=== PATIENT | male | born 1950 | race African-American/Black ===

== ENCOUNTER 2019-11-18 15:21 | Inpatient (IN) ==
[2019-11-18 15:54] VITALS: BMI 27.8
--- NOTE | 2019-11-18 16:12 | DR.EXTPAIN ---
HPI - Time seen Time seen: 16:08 - PCP Primary Care Physician: helena - Complaint/Symptoms Chief Complaint Doctor Comments: Patient states he has had a cold and cough for several weeks but has been nauseated, dizzy, aching for the past week getting progressively worst with fever. States he is a patient of Dr. Avendano and is taking his blood pressure medicines. 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 He denies tobacco or acohol uusage. He has not been feeling good for a week. He denies chest pain, dysuria or hematuria. Chief Complaint:: patient stated he has been sick,weak,dizzy and no energy for 2 weeks and has neen coughing and vomiting for 2 weeks. stated he has been running a fever for a week. - Nurses notes reviewed Nurses Notes Review: Yes - Source History Provided: Patient - Mode of arrival Mode of Arrival: Ambulatory - Timing Onset of Chief Complaint: 11/06/19 - Context History of: None - Associated signs and symptoms Associated Signs and Symptoms: None, Weakness, Fever, Cough, Nausea, Shortness of Breath, Vomiting PMH - PMH Past Medical History: Yes Past Medical History: Diabetes Past Surgical History: Yes Surgical History: Joint Replacement - Family History History of Family Medical Conditions: No Family Medical History: Cancer, [place] - Social History Does patient currently use any type of tobacco product: No Have you used tobacco products in the last 12 months: No Type of Tobacco Use: None Does any household member use tobacco: No Alcohol Use: Rarely Do you use any recreational Drugs:: No Lives With: Family Lives Where: Home - Travel Risk Coronavirus risk:travel/contact w/high risk person: No Has patient experienced Coronavirus symptoms: Yes Coronavirus symptoms experienced: Fever, Coughing - infectious screening In the last 2 months have you had wt loss of >10#?: NO Have you had fever, night sweats or hemotysis?: No Have you traveled outside the country in the last 6 months?: No Isolation: Droplet ROS - Review of Systems Constitutional: No Symptoms Reported, Chills, Fever, Weakness, Loss of Appetite Eyes: No Symptoms Reported ENTM: No Symptoms Reported Respiratoy: No Symptoms Reported, Non-Productive Cough, Short of Breath Cardiovascular: No Symptoms Reported. negative: See HPI, Chest Pain, Edema, Palpitations, Syncope, Cyanosis, Skin Mottling, Other Gastrointestinal/Abdominal: No Symptoms Reported, Nausea, Vomiting. negative: See HPI, Abdominal Pain, Constipation, Diarrhea, Food Intolerance, Other Genitourinary: No Symptoms Reported Neurological: No Symptoms Reported Musculoskeletal: No Symptoms Reported Integumentary: No Symptoms Reported Hematologic/Lymphatic: No Symptoms Reported. negative: See HPI, Anemia, Blood Clots, Easy Bleeding, Easy Bruising, Swollen Glands, Lymphadenopathy, Other Endocrine: No Symptoms Reported Psychiatric: No Symptoms Reported. negative: See HPI, Anxiety, Depression, Hallucinations, Excessive crying, Suicidal, Other PE - General Limitations: No Limitations General Appearance: Alert, In Distress (moderate) - Head Head Exam: Normal Inspection, Atraumatic, Normocephalic - Eyes Eye exam: Normal Appearance, PERRL, EOMI. negative: Scleral Icterus, Conjunctival Injection, Nystagmus, Miosis, Mydrasis, Periorbital Swelling, Periorbital Tenderness, Other - ENT ENT Exam: Normal Exam, Normal Oropharynx, Normal External Ear Exam, Mucous Membranes Moist, TM's Normal Bilaterally - Neck Neck Exam: Normal Inspection, Full ROM, Trachea Midline. negative: Tenderness, Meningismus, Lymphadenopathy, Thyromegaly, Other - Chest Chest Inspection: Normal Inspection, Symmetric Chest Wall Rise. negative: Tenderness, Rash, Abscess, Other - Respiratory Respiratory Exam: Normal Lung Sounds Bilat Respiratory Exam: Bilateral Decreased Breath Sounds, Right Rales, Lower Rales - Cardiovascular Cardiovascular Exam: Regular Rate, Normal Rhythm, Normal Heart Sounds, Systolic Murmur - Abdominal Exam Abdominal Exam: Normal Inspection, Normal Bowel Sounds, Soft. negative: Distention, Tenderness, Guarding, Rebound, Rigidity, Dimnished Bowel Sounds, Hyperactive Bowel Sounds, Hypoactive Bowel Sounds, Organomegaly, Trauma, Incision, Ascites, Mass, Bruit, Pulsatile Mass, Hernia, Other Abdominal Tenderness: negative: RUQ, RLQ, LUQ, LLQ, Epigastrium, Suprapubic, Diffuse, Mild, Moderate, Severe, Other - Extremities Extremities Exam: Normal Inspection, Full ROM, Normal Capillary Refill. negative: Tenderness, Edema, Joint Swelling, Calf Tenderness, Other - Upper Extremities Shoulder Exam: Normal Inspection, Full ROM. negative: Tenderness, Swelling, Abrasion, Laceration, Ecchymosis, Deformity, Crepitus, Dislocation, Erythema, Tenderness over AC Joint, Other Arm Exam: Normal Inspection, Full ROM. negative: Tenderness, Swelling, Abrasion, Laceration, Ecchymosis, Deformity, Crepitus, Erythema, Other Elbow Exam: Normal Inspection, Full ROM. negative: Tenderness, Swelling, Abrasion, Laceration, Ecchymosis, Deformity, Crepitus, Dislocation, Erythema, Effusion, Pain w/ pronation, Pain w/ Spuination, Tenderness over Radial Head, Other Forearm Exam: Normal Inspection, Full ROM. negative: Tenderness, Swelling, Abrasion, Laceration, Ecchymosis, Deformity, Crepitus, Erythema, Dislocation, Other Hand Exam: Normal Inspection, Full ROM. negative: Tenderness, Swelling, Abrasion, Laceration, Ecchymosis, Skin Avulsion, Deformity, Crepitus, Erythema, Dislocation, Amputation, Nail Avulsion, Subungual Hematoma, Other Neuromotor Exam: Normal Exam Neurosensory Exam: Normal Exam Upper Ext. Vascular Exam: Capillary Refill (normal), Radial Pulse (normal) - Lower Extremities Hip/Pelvis Exam: Normal Inspection, Full ROM Upper Leg Exam: Normal Inspection, Full ROM Knee Exam: Normal Inspection, Full ROM. negative: Tenderness, Swelling, Abrasion, Laceration, Ecchymosis, Deformity, Crepitus, Dislocation, Erythema, Effusion, Anterior Drawer Sign, Posterior Draw Sign, Pain with Valgus, Laxity with Valgus, Pain with Varus, Knee Extension Intact, Other Lower Leg Exam: Normal Inspection, Full ROM. negative: Tenderness, Swelling, Abrasion, Laceration, Deformity, Ecchymosis, Crepitus, Dislocation, Erythema, Pa lpable Cord, Homans' Sign, Achilles Tendon Intact, Other Ankle Exam: Normal Inspection, Full ROM. negative: Tenderness, Swelling, Abrasion, Laceration, Ecchymosis, Deformity, Crepitus, Dislocation, Erythema, Tenderness over talofibular lig, Anterior Draw Sign, Other Foot/Toe Exam: Normal Inspection, Full ROM. negative: Tenderness, Swelling, Abrasion, Laceration, Ecchymosis, Deformity, Crepitus, Dislocation, Erythema, Amputation, Puncture Wound, Foreign Body, Calcaneal Tenderness, Nail Avulsion, Other Neurovascular/Tendon Exam: Normal Capillary Refill, Normal 2-point discrimination, Normal Fine/Light Touch Gait Exam: Observed and Normal - Back Back Exam: Normal Inspection, Full ROM. negative: Tenderness, (R) CVA Tenderness, (L) CVA Tenderness, Muscle Spasm, Paraspinal Tenderness, Vertebral Tenderness, Rashes, (R) Sciatic Notch Tenderness, (L) Sciatic Notch Tendern, (R) Straight Leg Raise, (L) Straight Leg Raise, Other - Neurological Neurological Exam: Alert, Oriented X3, CN II-XII Intact, Normal Gait, Reflexes Normal - Psychiatric Psychiatric Exam: Normal Affect, Normal Mood. negative: Depressed, Agitated, Anxious, Flat Affect, Manic, Homicidal Ideation, Suicidal Ideation, Other - Skin Skin Exam: Warm, Dry, Intact, Normal Color. negative: Rash, Cyanosis, Diaphoresis, Erythema, Pallor, Mottled, Other Type of Lesion: negative: Rash, Abscess, Laceration, Foreign Body, Bite/Sting, Abrasion, Other Distribution: negative: Generalized, Involves Palms/Soles, Head, Face, Neck, Thorax, Chest, Back, Abdomen, Genitals, LUE, LLE, RUE, RLE, Other Description: negative: Size, Tenderness, Erythematous, Swelling, Macular, Papular, Vesicular, Blisters, Cofluent, Bullous, Petechial, Purpuric, Urticarial, Crusting, Discharge, Fluctuant, Indurated, Other - Vital Signs Vitals: Temperature 101.7 F Pulse Rate 99 Respiratory Rate 33 Blood Pressure 125/76 O2 Sat by Pulse Oximetry 96 Course - Reevaluation 1st: Improved - Consultation Called: 20:01 Call Returned: 20:01 (Dr. Avendano to admit) - Education/Counseling Education/Counseling: Patient, Family Educated On: Treatment, Diagnosis, Needs for Follow Up ROR - Labs Reviewed Laboratory Results Reviewed?: Yes (All labs and x-ray results reviewed and discussed with patient) Result Diagrams: 11/18/19 16:39 11/18/19 16:39 - XRAY XRAY Interpreted by: Radiologist (CXR: No acute or significant chest findings) - EKG Rate: 91 [place]: Normal Rhythm: NSR Block: None Hypertrophy: None ST: Normal - Labs Reviewed Laboratory: WBC 7.8 X10^3/uL (3.6-10.0) 11/18/19 16:39 RBC 5.46 X10^6/uL (4.7-6.0) 11/18/19 16:39 Hgb 15.3 g/dL (13.5-18.0) 11/18/19 16:39 Hct 46.0 % (42.0-54.0) 11/18/19 16:39 MCV 84.2 fL (80.0-100.0) 11/18/19 16:39 MCH 28.0 pg (27.0-34.0) 11/18/19 16:39 MCHC 33.3 g/dL (33.0-35.0) 11/18/19 16:39 RDW 13.4 % (11.6-16.5) 11/18/19 16:39 Plt Count 205 X10^3/uL (150.0-450.0) 11/18/19 16:39 MPV 8.5 fL (7.4-11.0) 11/18/19 16:39 Neut % (Auto) 81.2 % (42.0-75.0) H 11/18/19 16:39 Lymph % (Auto) 10.2 % (21.0-51.0) L 11/18/19 16:39 [place] % (Auto) 8.2 % (0.0-13.0) 11/18/19 16:39 Eos % (Auto) 0.0 % (0.9-2.9) L 11/18/19 16:39 Baso % (Auto) 0.4 % (0.2-1.0) 11/18/19 16:39 Neut # (Auto) 6.3 x10^3/uL (2.2-4.8) H 11/18/19 16:39 Lymph # (Auto) 0.8 X10^3/uL (1.3-2.9) L 11/18/19 16:39 [place] # (Auto) 0.6 x10^3/uL (0.3-0.8) 11/18/19 16:39 Eos # (Auto) 0.0 x10^3/uL (0.0-0.2) 11/18/19 16:39 Baso # (Auto) 0.0 X10^3/uL (0.0-0.1) 11/18/19 16:39 Absolute Nucleated RBC 0.0 /100WBC 11/18/19 16:39 PT 13.5 SECONDS (11.8-14.3) 11/18/19 16:39 INR Target Range - 11/18/19 16:39 INR 1.06 (0.8-1.3) 11/18/19 16:39 APTT 43.6 SECONDS (22.9-36.5) H 11/18/19 16:39 PTT Comment - 11/18/19 16:39 Sodium 140 mmol/L (136-145) 11/18/19 16:39 Corrected Sodium 141 mmol/L (136-145) 11/18/19 16:39 Potassium 4.2 mmol/L (3.5-5.1) 11/18/19 16:39 Chloride 101 mmol/L (98-107) 11/18/19 16:39 Carbon Dioxide 32.5 mmol/L (21-32) H 11/18/19 16:39 BUN 23 mg/dL (7-18) H 11/18/19 16:39 Creatinine 1.72 mg/dL (0.70-1.30) H 11/18/19 16:39 Est GFR (MDRD) Af Amer 51 (>60) L 11/18/19 16:39 Est GFR (MDRD) Non-Af 42 (>60) L 11/18/19 16:39 Glucose 132 mg/dL (65-99) H 11/18/19 16:39 Lactic Acid 1.2 mmol/L (0.4-2.0) 11/18/19 16:39 Calcium 9.0 mg/dL (8.5-10.1) 11/18/19 16:39 Corrected Calcium 9.6 mg/dL (8.5-10.1) 11/18/19 16:39 Magnesium 1.8 mg/dL (1.7-2.9) 11/18/19 16:39 Total Bilirubin 1.00 mg/dL (0.2-1.0) 11/18/19 16:39 AST 27 Units/L (15-37) 11/18/19 16:39 ALT 22 Units/L (12-78) 11/18/19 16:39 Alkaline Phosphatase 87 Units/L (46-116) 11/18/19 16:39 Total Protein 8.5 g/dL (6.4-8.2) H 11/18/19 16:39 Albumin 3.3 g/dL (3.4-5.0) L 11/18/19 16:39 Globulin 5.2 g/dL (2.5-4.5) H 11/18/19 16:39 Albumin/Globulin Ratio 0.6 Ratio (1.1-2.1) L 11/18/19 16:39 Specimen Type Random urine 11/18/19 18:46 Urine Color Pale yellow (YELLOW) 11/18/19 18:46 Urine Appearance Clear (CLEAR) 11/18/19 18:46 Urine pH 8.0 (5.0 - 8.0) 11/18/19 18:46 Ur Specific [place] 1.015 (1.000-1.030) 11/18/19 18:46 Urine Protein Negative (NEGATIVE) 11/18/19 18:46 Urine Glucose (UA) Negative (NEGATIVE) 11/18/19 18:46 Urine Ketones Negative (NEGATIVE) 11/18/19 18:46 Urine Occult Blood Negative (NEGATIVE) 11/18/19 18:46 Urine Nitrite Negative (NEGATIVE) 11/18/19 18:46 Urine Bilirubin Negative (NEGATIVE) 11/18/19 18:46 Urine Urobilinogen Normal (NORMAL) 11/18/19 18:46 Ur Leukocyte Esterase Negative (NEGATIVE) 11/18/19 18:46 Influenza Type A Ag Negative-presumptive (NEGATIVE) 11/18/19 16:32 Influenza Type B Ag Negative-presumptive (NEGATIVE) 11/18/19 16:32 S. pyogenes (TEM-PCR) Not detected (NOT DETECT) 11/18/19 16:32 Opioid - Opioid Risk Tool Age (Deepak box if 16-45): No History of Preadolescent Sexual Abuse: No Total: 0 Total Score Risk Category: Low Risk - Diagnosis Discharge Problem: Suspected 2019 novel coronavirus infection, Dehydration, Hyperglycemia Chronic kidney disease (CKD) Qualifiers: Chronic kidney disease stage: stage 3 (moderate) Qualified Code(s): N18.3 - Chronic kidney disease, stage 3 (moderate) - Discharge Plan Disposition: ADMITTED INPATIENT Condition: Stable - Follow ups/Referrals Follow ups/Referrals: James Lees [Primary Care Provider] - 3 days - Instructions
[2019-11-18] MEDS ORDERED: ZOFRAN INJ 4 MG VIAL IVP ONE (16:29)
[2019-11-18] MEDS ORDERED: ZOFRAN INJ 4 MG VIAL ONE (16:31)
[2019-11-18] MEDS ORDERED: NS 1000 ML 1,000 ML ONE (16:31)
--- NOTE | 2019-11-18 16:47 | RAD ---
HISTORYCough and feverSTUDYPortable AP chestCOMPARISONNoneFINDINGSNormal heart size, tortuous thoracic aorta, clear lungs and pleural spaces. There is no evidence for CHF or pneumonia.IMPRESSIONNo acute or significant chest findings.Electronically signed by: JANETH FRANKLIN (November 18, 2019 16:45:12)
[2019-11-18] MEDS ORDERED: OFIRMEV IV 1000 MG VIAL 1,000 MG/100 ML VIAL IV ONE ×2 (16:53)
[2019-11-18 16:56] LABS: BASOPHILS % (AUTO) 0.4 % (0.2-1.0); HEMOGLOBIN 15.3 g/dL (13.5-18.0); LYMPHOCYTES # (AUTO) 0.8 X10^3/uL (1.3-2.9); LYMPHOCYTES % (AUTO) 10.2 % (21.0-51.0); MEAN CORPUSCULAR HGB CONC 33.3 g/dL (33.0-35.0); MEAN CORPUSCULAR VOLUME 84.2 fL (80.0-100.0); MEAN PLATELET VOLUME 8.5 fL (7.4-11.0); MONOCYTES # (AUTO) 0.6 x10^3/uL (0.3-0.8); MONOCYTES % (AUTO) 8.2 % (0.0-13.0); NEUTROPHILS # (AUTO) 6.3 x10^3/uL (2.2-4.8); NEUTROPHILS % (AUTO) 81.2 % (42.0-75.0); PLATELET COUNT 205 X10^3/uL (150.0-450.0); RED BLOOD COUNT 5.46 X10^6/uL (4.7-6.0); RED CELL DISTRIBUTION WIDTH 13.4 % (11.6-16.5); WHITE BLOOD COUNT 7.8 X10^3/uL (3.6-10.0)
[2019-11-18] MEDS ORDERED: NS 1000 ML 1,000 ML IV SCH (17:00)
[2019-11-18 17:27] LABS: ALBUMIN 3.3 g/dL (3.4-5.0); CARBON DIOXIDE 32.5 mmol/L (21-32); COR CA(FOR HYPOALB) 9.6 mg/dL (8.5-10.1); CREATININE 1.72 mg/dL (0.70-1.30); MAGNESIUM 1.8 mg/dL (1.7-2.9); TOTAL PROTEIN 8.5 g/dL (6.4-8.2)
[2019-11-18 18:57] LABS: BILIRUBIN,URINE NEGATIVE (NEGATIVE); BLOOD/HEMOGLOBIN,URINE NEGATIVE (NEGATIVE); GLUCOSE, URINE NEGATIVE (NEGATIVE); KETONES,URINE NEGATIVE (NEGATIVE); LEUKOCYTE ESTERASE ,URINE NEGATIVE (NEGATIVE); NITRITES,URINE NEGATIVE (NEGATIVE); PROTEIN,URINE NEGATIVE (NEGATIVE); UROBILINOGEN,URINE NORMAL (NORMAL)
[2019-11-18 19:00] LABS: APPEARANCE,URINE CLEAR (CLEAR); COLOR,URINE PALE YELLOW (YELLOW)
[2019-11-18] MEDS ORDERED: ROCEPHIN VIAL 1 GRAM 1 G in NS 100 ML IV + SPIKE MINIBAG* 100 ML IV ONE (19:17)
[2019-11-18] MEDS ORDERED: NS 100 ML IV + SPIKE MINIBAG* 100 ML IV ONE (19:46)
[2019-11-18] MEDS ORDERED: ROCEPHIN VIAL 1 GRAM ONE (19:47)
[2019-11-18] MEDS ORDERED: ASCORBIC ACID INJ MULTI-DOSE VIAL IM SCH (20:15)
[2019-11-18] MEDS ORDERED: HumuLIN R SC PRN (20:22)
[2019-11-18] MEDS ORDERED: VIBRAMYCIN 100 MG in D5W 250 ML IV 250 ML IV SCH (22:00)
[2019-11-18] MEDS: NS 1000 ML 1,000 ML IV SCH (23:00)
[2019-11-18] MEDS: PLAQUENIL PO SCH (23:17)
[2019-11-18] MEDS: ZINC SULFATE PO SCH (23:19)
[2019-11-19] MEDS ORDERED: VITAMIN C PO STA (00:54)
[2019-11-19] MEDS: THIAMINE HCL INJ IM SCH ×3 (01:07→21:21)
[2019-11-19] MEDS: PLAQUENIL PO SCH ×3 (06:15→21:22)
[2019-11-19 06:47] LABS: BASOPHILS % (AUTO) 0.3 % (0.2-1.0); EOSINOPHILS % (AUTO) 0.1 % (0.9-2.9); HEMATOCRIT 41.7 % (42.0-54.0); LYMPHOCYTES # (AUTO) 0.9 X10^3/uL (1.3-2.9); LYMPHOCYTES % (AUTO) 14.1 % (21.0-51.0); MEAN CORPUSCULAR HEMOGLOBIN 28.2 pg (27.0-34.0); MEAN CORPUSCULAR HGB CONC 33.5 g/dL (33.0-35.0); MEAN CORPUSCULAR VOLUME 84.3 fL (80.0-100.0); MEAN PLATELET VOLUME 8.8 fL (7.4-11.0); MONOCYTES # (AUTO) 0.6 x10^3/uL (0.3-0.8); MONOCYTES % (AUTO) 8.9 % (0.0-13.0); NEUTROPHILS % (AUTO) 76.6 % (42.0-75.0); PLATELET COUNT 185 X10^3/uL (150.0-450.0); RED BLOOD COUNT 4.95 X10^6/uL (4.7-6.0); RED CELL DISTRIBUTION WIDTH 13.9 % (11.6-16.5); WHITE BLOOD COUNT 6.5 X10^3/uL (3.6-10.0)
[2019-11-19 07:02] LABS: ALANINE AMINOTRANSFERASE 17 Units/L (12-78); ALBUMIN 2.7 g/dL (3.4-5.0); ALKALINE PHOSPHATASE 74 Units/L (46-116); ASPARTATE AMINO TRANSFERASE 26 Units/L (15-37); BLOOD UREA NITROGEN 22 mg/dL (7-18); CALCIUM 8.4 mg/dL (8.5-10.1); CARBON DIOXIDE 29.3 mmol/L (21-32); CHLORIDE 101 mmol/L (98-107); COR CA(FOR HYPOALB) 9.4 mg/dL (8.5-10.1); COR NA(FOR HYPERGLY) 140 mmol/L (136-145); CREATININE 1.41 mg/dL (0.70-1.30); SODIUM 138 mmol/L (136-145); TOTAL PROTEIN 7.3 g/dL (6.4-8.2); eGFR NON BLACK RACES 53 (>60)
[2019-11-19] MEDS ORDERED: ASCORBIC ACID INJ MULTI-DOSE VIAL IM SCH (09:00)
[2019-11-19] MEDS ORDERED: VITAMIN D3 25 mcg (1,000 UNITS) PO SCH (09:00)
[2019-11-19] MEDS: VITAMIN A PO SCH (09:50)
[2019-11-19] MEDS: ZINC SULFATE PO SCH ×2 (09:51→21:21)
[2019-11-19] MEDS: TESSALON PERLES PO SCH ×3 (10:36→21:19)
[2019-11-19] MEDS: TUSSIONEX PENNKINETIC SUSP PO SCH ×2 (10:36→21:21)
[2019-11-19] MEDS: ZITHROMAX INJ 500 MG VIAL 500 MG in NS 250 ML IV 250 ML IV SCH (10:37)
[2019-11-19] MEDS: NS 100 ML IV 100 ML with ASCORBIC ACID INJ MULTI-DOSE VIAL 1,500 MG IV SCH ×6 (11:29→21:21)
[2019-11-19] MEDS: NS 1000 ML 1,000 ML IV SCH (21:20)
[2019-11-19] MEDS: TYLENOL 325 MG TAB PO PRN (21:40)
--- NOTE | 2019-11-19 21:53 | DR.H&P ---
H&P - History & Physical for Day of: H&P Date: 11/18/19 - Chief Complaint Chief Complaint: FEVER, COUGH, DIZZINESS, WEAKNESS, ACHING - History of Present Illness History of Present Illness: IS A 69 YEAR OLD PATIENT OF OURS. HE PRESENTED TO THE ER WITH COMPLAINTS OF FEVER, COUGH, COLD, DIZZINESS, WEAKNESS, AND GENERALIZED ACHING FOR THE PAST TWO WEEKS. SYMPTOMS HAVE PROGRESSIVELY WORSENED OVER TIME. 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 HE DENIES CHEST PAIN, DYSURIA, OR HEMATUIA. PMH INCLUDES HTN, DIABETES, CKD, AND ANXIETY. ON ARRIVAL TO THE ER, VITALS WERE 102.9-89-16-93%RA-95/52. LABS WERE OBTAINED. ABNORMAL LAB VALUES INCLUDE THE FOLLOWING: PTT 43.6, CARBON DIOXIDE 32.5, BUN 23, CREATININE 1.72, GLUCOSE 132, TOTAL PROTEIN 8.5, ALBUMIN 3.3. URINALYSIS IS UNREMARKABLE. INFLUENZA AND STREP NEGATIVE. HE WAS SWABBED FOR COVID-19. BLOOD CULTURES ARE PENDING. A CHEST XRAY WAS OBTAINED AND REVEALED: No acute or significant chest findings. AN EKG WAS OBTAINED AND REVEALED: SINUS RHYTHM WITH HR 91. HE WAS GIVEN VIBRAMYCIN 100MG IV X 1 DOSE, ROCEPHIN 1G IV X 1 DOSE, AND TYLENOL IV. HE WAS ADMITTED FOR FURTHER EVALUATION AND TREATMENT OF BRONCHOPNEUMONIA, DEHYDRATION, SUSPECTED COVID-19 INFECTION, FEVER, CHRONIC KIDNEY DISEASE, AND HYPERGLYCEMIA. HE WAS STARTED ON NS AT [facility], AZITHROMYCIN 500MG IV DAILY, PLAQUENIL 200MG PO TID, TUSSIONEX 5ML Q12H, TESSALON PERLES 200MG PO TID, HUMULIN R SLIDING SCALE, ASCORBID ACID 1500MG IV Q6H, THIAMINE 200MG IM BID, VITAMIN A 10,000 UNITS PO DAILY, AND ZINC SULFATE. WE WILL REVIEW HIS HOME MEDICATIONS. OTHERWISE, WE WILL FOLLOW UP WITH AM LABS AND CHEST XRAY AND CONTINUE TO MONITOR. - Past Medical History Past Medical History: Anxiety, Diabetes, Hypertension, Renal Disease - Past Surgical History Surgical History: Joint Replacement - Family History Family Medical History: Diabetes Mellitus, Coronary Artery Disease, Hypertension - Social History Does patient currently use any type of tobacco product: No Have you used tobacco products in the last 12 months: No Type of Tobacco Use: None Does any household member use tobacco: No Alcohol Use: DAILY Drug Use: None - Medications Home Medications: No Known Drug Allergies Allergy (Verified 11/18/19 15:48) - Review of Systems Constitutional: See HPI, Fever, Chills, Weakness Eyes: No Symptoms Reported ENT: No Symptoms Reported Respiratory: See HPI, Cough, Shortness of Breath Cardiovascular: See HPI, Light Headedness Gastrointestinal: No Symptoms Reported Genitourinary: No Symptoms Reported Musculoskeletal: See HPI Skin: No Symptoms Reported Neurological: Weakness - Physical Exam Vital Signs: Temperature 103.0 F Pulse Rate 96 Respiratory Rate 18 Blood Pressure [Left Arm] 130/76 Blood Pressure 148/81 O2 Sat by Pulse Oximetry 98 Oriented: Normal Eyes: Normal Ear: Normal Nose: Normal Throat: Normal Respiratory: Diminished Throughout Cardiovascular: Normal : Normal Auscultation: Bowel Sounds: Normal Palpation: Normal Tenderness: Normal Skin: Normal Musculoskeletal: Normal Psychiatric: Normal Mood Description: Calm Affect: Normal Speech Pattern: Clear, Appropriate - Assessment/Plan (1) Bronchopneumonia Status: Acute Plan: ADMIT, AZITHROMYCIN 500MG IV DAILY, NS AT KVO, PLAQUENIL 200MG PO TID, TUSSIONEX 5ML Q12H, TESSALON PERLES 200MG PO TID, HUMULIN R SLIDING SCALE, ASCORBID ACID 1500MG IV Q6H, THIAMINE 200MG IM BID, VITAMIN A 10,000 UNITS PO DAILY, AND ZINC SULFATE, SUPPLEMENTAL OXYGEN, MONITOR LABS AND CHEST XRAY, CONTINUE TO MONITOR (2) Dehydration Status: Acute (3) Chronic kidney disease (CKD) Qualifiers: Chronic kidney disease stage: stage 3 (moderate) Qualified Code(s): N18.3 - Chronic kidney disease, stage 3 (moderate) Status: Chronic (4) Hyperglycemia Status: Acute (5) Hypertension Qualifiers: Hypertension type: essential hypertension Qualified Code(s): I10 - Essential (primary) hypertension Status: Acute - Allergies Allergies/Adverse Reactions: Allergies Allergy/AdvReac Type Severity Reaction Status Date / Time No Known Drug Allergies Allergy Verified 11/18/19 15:48
[2019-11-20] MEDS: NS 100 ML IV 100 ML with ASCORBIC ACID INJ MULTI-DOSE VIAL 1,500 MG IV SCH ×8 (03:30→20:32)
[2019-11-20] MEDS: PLAQUENIL PO SCH ×3 (05:54→21:33)
[2019-11-20] MEDS: TESSALON PERLES PO SCH ×3 (05:55→21:33)
[2019-11-20 06:52] LABS: BASOPHILS % (AUTO) 0.2 % (0.2-1.0); HEMOGLOBIN 13.5 g/dL (13.5-18.0); LYMPHOCYTES # (AUTO) 1.1 X10^3/uL (1.3-2.9); LYMPHOCYTES % (AUTO) 12.3 % (21.0-51.0); MEAN CORPUSCULAR HEMOGLOBIN 27.7 pg (27.0-34.0); MEAN CORPUSCULAR VOLUME 83.9 fL (80.0-100.0); MEAN PLATELET VOLUME 8.5 fL (7.4-11.0); MONOCYTES # (AUTO) 0.6 x10^3/uL (0.3-0.8); MONOCYTES % (AUTO) 6.6 % (0.0-13.0); NEUTROPHILS # (AUTO) 6.9 x10^3/uL (2.2-4.8); NEUTROPHILS % (AUTO) 80.9 % (42.0-75.0); PLATELET COUNT 190 X10^3/uL (150.0-450.0); RED BLOOD COUNT 4.88 X10^6/uL (4.7-6.0); RED CELL DISTRIBUTION WIDTH 13.8 % (11.6-16.5); WHITE BLOOD COUNT 8.6 X10^3/uL (3.6-10.0)
[2019-11-20 07:12] LABS: ALANINE AMINOTRANSFERASE 18 Units/L (12-78); ALBUMIN 2.5 g/dL (3.4-5.0); ALKALINE PHOSPHATASE 68 Units/L (46-116); ASPARTATE AMINO TRANSFERASE 29 Units/L (15-37); BLOOD UREA NITROGEN 17 mg/dL (7-18); CALCIUM 8.3 mg/dL (8.5-10.1); CARBON DIOXIDE 30.7 mmol/L (21-32); CHLORIDE 101 mmol/L (98-107); COR CA(FOR HYPOALB) 9.5 mg/dL (8.5-10.1); SODIUM 138 mmol/L (136-145); eGFR NON BLACK RACES 58 (>60)
--- NOTE | 2019-11-20 07:56 | RAD ---
HISTORYshort of breathSTUDYCHEST, 1 VIEWCOMPARISONChest film November 18, 2019.FINDINGSThe trachea is midline. The cardiac silhouette is borderline enlarged.. The lungs are clear without focal infiltrate or effusion. The bony thorax is unremarkable.IMPRESSIONBorderline cardiomegaly but no acute infiltrates at this time and no change from November 18, 2019 film..Electronically signed by: SHAUN LIANG (November 20, 2019 07:55:04)
[2019-11-20] MEDS: VITAMIN A PO SCH (08:08)
[2019-11-20] MEDS: VITAMIN D3 125 mcg (5,000 UNITS) PO SCH (08:08)
[2019-11-20] MEDS: ZINC SULFATE PO SCH ×2 (08:08→20:30)
[2019-11-20] MEDS: THIAMINE HCL INJ IM SCH ×2 (08:09→21:32)
[2019-11-20] MEDS: TUSSIONEX PENNKINETIC SUSP PO SCH ×2 (09:08→21:33)
[2019-11-20] MEDS: ZITHROMAX INJ 500 MG VIAL 500 MG in NS 250 ML IV 250 ML IV SCH (09:20)
[2019-11-20] MEDS: LOVENOX INJ 40 MG SYR SC SCH (09:28)
[2019-11-20] MEDS: TYLENOL 325 MG TAB PO PRN ×2 (11:30→23:17)
--- NOTE | 2019-11-20 16:43 | PCM.PROG ---
Progress Note - Progress Note for Day of Date of Exam: 11/20/19 - Subjective Subjective: IS BEING TREATED FOR BRONCHOPNEUMONIA, AND DEHYDRATION. TODAY, HE IS ALERT AND ORIENTED, LYING IN BED ON MORNING ROUNDS. HE CONTINUE WITH FEVER, COUGH, AND SHORTNESS OF BREATH. ON EXAMINATION, HEART IS REGULAR IN RATE AND RHYTHM. BILATERAL LUNGS ARE NOTED WITH SCATTERED WHEEZING AND RHONCHI THROUGHOUT. ABDOMEN IS ROUND, SOFT, AND NON-TENDER WITH NORMAL BOWEL SOUNDS NOTED IN ALL QUADRANTS. HIS VITALS THIS MORNING ARE: 99.5-68-21-99%-124/70. LABS WERE OBTAINED. ABNORMAL LAB VALUES INCLUDE THE FOLLOWING: HCT 41.0, CALCIUM 8.3, CRP 93.20, ALBUMIN 2.5. COVID-19 PENDING. BLOOD CULTURES ARE PENDING. A CHEST XRAY WAS OBTAINED AND REVEALED: The trachea is midline. The cardiac silhouette is borderline enlarged. The lungs are clear without focal infiltrate or effusion. The bony thorax is unremarkable. HE IS CURRENTLY RECEIVING: NS AT [facility], AZITHROMYCIN 500MG IV DAILY, PLAQUENIL 200MG PO TID, TUSSIONEX 5ML Q12H, TESSALON PERLES 200MG PO TID, HUMULIN R SLIDING SCALE, ASCORBID ACID 1500MG IV Q6H, THIAMINE 200MG IM BID, VITAMIN A 10,000 UNITS PO DAILY, AND ZINC SULFATE. WE WILL CONTINUE WITH CURRENT PLAN OF CARE TODAY. OTHERWISE, WE WILL FOLLOW UP WITH AM LABS AND CONTINUE TO MONITOR. - Past Medical Family Social History Past Med/Fam/Surg Hx: No changes since H&P Allergies: Allergies No Known Drug Allergies Allergy (Verified 11/18/19 15:48) - Review of Systems ROS: No change since H&P - Vital Signs and I&O's Vital Signs: Temperature 99.5 F Pulse Rate 66 Respiratory Rate 20 Blood Pressure [Left Arm] 130/76 Blood Pressure 120/68 O2 Sat by Pulse Oximetry 97 Intake and Output: Intake & Output 11/18/19 11/19/19 11/20/19 11/21/19 11:59 11:59 11:59 11:59 Intake Total 1115 / 1115 2638 / 2638 1532 / 1532 Output Total 100 / 100 950 / 950 Balance 1015 / 1015 1688 / 1688 1532 / 1532 - Physical Exam Oriented: Normal Eyes: Normal Ear: Normal Nose: Normal Throat: Normal Respiratory: Generalized, Wheezes, Rhonchi Cardiovascular: Normal : Normal Auscultation: Bowel Sounds: Normal Palpation: Normal Tenderness: Normal Skin: Normal Musculoskeletal: Normal Psychiatric: Normal Mood Description: Calm Affect: Normal Speech Pattern: Clear, Appropriate - Laboratory and Diagnostics Result Diagrams: 11/20/19 06:20 11/20/19 06:20 Labs: 11/18/19 16:44 Blood Blood Culture - Preliminary 11/18/19 16:39 Blood Blood Culture - Preliminary Laboratory WBC 8.6 X10^3/uL (3.6-10.0) 11/20/19 06:20 RBC 4.88 X10^6/uL (4.7-6.0) 11/20/19 06:20 Hgb 13.5 g/dL (13.5-18.0) 11/20/19 06:20 Hct 41.0 % (42.0-54.0) L 11/20/19 06:20 MCV 83.9 fL (80.0-100.0) 11/20/19 06:20 MCH 27.7 pg (27.0-34.0) 11/20/19 06:20 MCHC 33.0 g/dL (33.0-35.0) 11/20/19 06:20 RDW 13.8 % (11.6-16.5) 11/20/19 06:20 Plt Count 190 X10^3/uL (150.0-450.0) 11/20/19 06:20 MPV 8.5 fL (7.4-11.0) 11/20/19 06:20 Neut % (Auto) 80.9 % (42.0-75.0) H 11/20/19 06:20 Lymph % (Auto) 12.3 % (21.0-51.0) L 11/20/19 06:20 [place] % (Auto) 6.6 % (0.0-13.0) 11/20/19 06:20 Eos % (Auto) 0.0 % (0.9-2.9) L 11/20/19 06:20 Baso % (Auto) 0.2 % (0.2-1.0) 11/20/19 06:20 Neut # (Auto) 6.9 x10^3/uL (2.2-4.8) H 11/20/19 06:20 Lymph # (Auto) 1.1 X10^3/uL (1.3-2.9) L 11/20/19 06:20 [place] # (Auto) 0.6 x10^3/uL (0.3-0.8) 11/20/19 06:20 Eos # (Auto) 0.0 x10^3/uL (0.0-0.2) 11/20/19 06:20 Baso # (Auto) 0.0 X10^3/uL (0.0-0.1) 11/20/19 06:20 Absolute Nucleated RBC 0.0 /100WBC 11/20/19 06:20 PT 13.5 SECONDS (11.8-14.3) 11/18/19 16:39 INR Target Range - 11/18/19 16:39 INR 1.06 (0.8-1.3) 11/18/19 16:39 APTT 43.6 SECONDS (22.9-36.5) H 11/18/19 16:39 PTT Comment - 11/18/19 16:39 Sodium 138 mmol/L (136-145) 11/20/19 06:20 Corrected Sodium TNP 11/20/19 06:20 Potassium 4.2 mmol/L (3.5-5.1) 11/20/19 06:20 Chloride 101 mmol/L (98-107) 11/20/19 06:20 Carbon Dioxide 30.7 mmol/L (21-32) 11/20/19 06:20 BUN 17 mg/dL (7-18) 11/20/19 06:20 Creatinine 1.30 mg/dL (0.70-1.30) 11/20/19 06:20 Est GFR (MDRD) Af Amer > 60 (>60) 11/20/19 06:20 Est GFR (MDRD) Non-Af 58 (>60) L 11/20/19 06:20 Glucose 85 mg/dL (65-99) 11/20/19 06:20 Lactic Acid 1.2 mmol/L (0.4-2.0) 11/18/19 16:39 Calcium 8.3 mg/dL (8.5-10.1) L 11/20/19 06:20 Corrected Calcium 9.5 mg/dL (8.5-10.1) 11/20/19 06:20 Magnesium 1.8 mg/dL (1.7-2.9) 11/18/19 16:39 Total Bilirubin 0.90 mg/dL (0.2-1.0) 11/20/19 06:20 AST 29 Units/L (15-37) 11/20/19 06:20 ALT 18 Units/L (12-78) 11/20/19 06:20 Alkaline Phosphatase 68 Units/L (46-116) 11/20/19 06:20 C-Reactive Protein 93.20 mg/L (0-3.0) H 11/20/19 06:20 Total Protein 7.0 g/dL (6.4-8.2) 11/20/19 06:20 Albumin 2.5 g/dL (3.4-5.0) L 11/20/19 06:20 Globulin 4.5 g/dL (2.5-4.5) 11/20/19 06:20 Albumin/Globulin Ratio 0.6 Ratio (1.1-2.1) L 11/20/19 06:20 Specimen Type Random urine 11/18/19 18:46 Urine Color Pale yellow (YELLOW) 11/18/19 18:46 Urine Appearance Clear (CLEAR) 11/18/19 18:46 Urine pH 8.0 (5.0 - 8.0) 11/18/19 18:46 Ur Specific [place] 1.015 (1.000-1.030) 11/18/19 18:46 Urine Protein Negative (NEGATIVE) 11/18/19 18:46 Urine Glucose (UA) Negative (NEGATIVE) 11/18/19 18:46 Urine Ketones Negative (NEGATIVE) 11/18/19 18:46 Urine Occult Blood Negative (NEGATIVE) 11/18/19 18:46 Urine Nitrite Negative (NEGATIVE) 11/18/19 18:46 Urine Bilirubin Negative (NEGATIVE) 11/18/19 18:46 Urine Urobilinogen Normal (NORMAL) 11/18/19 18:46 Ur Leukocyte Esterase Negative (NEGATIVE) 11/18/19 18:46 Influenza Type A Ag Negative-presumptive (NEGATIVE) 11/18/19 16:32 Influenza Type B Ag Negative-presumptive (NEGATIVE) 11/18/19 16:32 S. pyogenes (TEM-PCR) Not detected (NOT DETECT) 11/18/19 16:32 - Plan (1) Bronchopneumonia Status: Acute Plan: AZITHROMYCIN 500MG IV DAILY, NS AT KVO, PLAQUENIL 200MG PO TID, TUSSIONEX 5ML Q12H, TESSALON PERLES 200MG PO TID, HUMULIN R SLIDING SCALE, ASCORBID ACID 1500MG IV Q6H, THIAMINE 200MG IM BID, VITAMIN A 10,000 UNITS PO DAILY, AND ZINC SULFATE, SUPPLEMENTAL OXYGEN, MONITOR LABS AND CHEST XRAY, CONTINUE TO MONITOR (2) Dehydration Status: Acute (3) Chronic kidney disease (CKD) Status: Chronic Qualifiers: Chronic kidney disease stage: stage 3 (moderate) Qualified Code(s): N18.3 - Chronic kidney disease, stage 3 (moderate) (4) Hyperglycemia Status: Acute (5) Hypertension Status: Acute Qualifiers: Hypertension type: essential hypertension Qualified Code(s): I10 - Essential (primary) hypertension
[2019-11-21] MEDS: NS 100 ML IV 100 ML with ASCORBIC ACID INJ MULTI-DOSE VIAL 1,500 MG IV SCH ×8 (03:05→20:27)
[2019-11-21] MEDS: PLAQUENIL PO SCH ×3 (05:28→21:00)
[2019-11-21] MEDS: TESSALON PERLES PO SCH ×3 (05:29→21:00)
[2019-11-21 06:22] LABS: BASOPHILS % (AUTO) 0.3 % (0.2-1.0); EOSINOPHILS % (AUTO) 0.3 % (0.9-2.9); HEMATOCRIT 38.2 % (42.0-54.0); HEMOGLOBIN 12.8 g/dL (13.5-18.0); LYMPHOCYTES # (AUTO) 1.1 X10^3/uL (1.3-2.9); LYMPHOCYTES % (AUTO) 11.6 % (21.0-51.0); MEAN CORPUSCULAR HGB CONC 33.5 g/dL (33.0-35.0); MEAN CORPUSCULAR VOLUME 83.6 fL (80.0-100.0); MEAN PLATELET VOLUME 8.7 fL (7.4-11.0); MONOCYTES # (AUTO) 0.6 x10^3/uL (0.3-0.8); MONOCYTES % (AUTO) 6.4 % (0.0-13.0); NEUTROPHILS # (AUTO) 7.4 x10^3/uL (2.2-4.8); NEUTROPHILS % (AUTO) 81.4 % (42.0-75.0); PLATELET COUNT 202 X10^3/uL (150.0-450.0); RED BLOOD COUNT 4.57 X10^6/uL (4.7-6.0); RED CELL DISTRIBUTION WIDTH 13.5 % (11.6-16.5); WHITE BLOOD COUNT 9.2 X10^3/uL (3.6-10.0)
[2019-11-21 06:24] LABS: ALANINE AMINOTRANSFERASE 16 Units/L (12-78); ALBUMIN 2.3 g/dL (3.4-5.0); ALKALINE PHOSPHATASE 67 Units/L (46-116); ASPARTATE AMINO TRANSFERASE 30 Units/L (15-37); BLOOD UREA NITROGEN 15 mg/dL (7-18); CALCIUM 8.3 mg/dL (8.5-10.1); CARBON DIOXIDE 29.2 mmol/L (21-32); CHLORIDE 101 mmol/L (98-107); COR CA(FOR HYPOALB) 9.7 mg/dL (8.5-10.1); COR NA(FOR HYPERGLY) 137 mmol/L (136-145); CREATININE 1.15 mg/dL (0.70-1.30); SODIUM 136 mmol/L (136-145); TOTAL PROTEIN 6.6 g/dL (6.4-8.2); eGFR NON BLACK RACES > 60 (>60)
--- NOTE | 2019-11-21 06:34 | RAD ---
HISTORYShortness of breathSTUDYCHEST, 1 [id number]/2020FINDINGSThe heart is mildly enlarged. The left ventricle is prominent. No congestive heart failure or infiltrates are identified. Mild hypo inflation is present. No pleural effusions are identified.IMPRESSIONMild cardiomegaly with left ventricular prominenceLungs mildly hypoinflated but clearElectronically signed by: GARTH SEVILLA (November 21, 2019 06:32:10)
[2019-11-21] MEDS: NS 1000 ML 1,000 ML IV SCH ×2 (07:14→20:27)
[2019-11-21] MEDS ORDERED: K-RIDER 10 MEQ/NS 100 ML 10 MEQ/100 ML BAG IV PRN (07:15)
[2019-11-21] MEDS ORDERED: POTASSIUM CHL 40 MEQ/NS 0.45% 500 ML IV PRN (07:15)
[2019-11-21] MEDS ORDERED: MICRO K EXTEN CAP 10 MEQ PO PRN (07:15)
[2019-11-21] MEDS ORDERED: KLOR-CON PO PRN (07:15)
[2019-11-21] MEDS ORDERED: POTASSIUM CHLORIDE LIQ 20 MEQ UDC PO PRN (07:15)
[2019-11-21] MEDS ORDERED: POTASSIUM CHL 60 MEQ/NS 0.45% 500 ML IV PRN (07:15)
[2019-11-21] MEDS: VITAMIN A PO SCH (08:25)
[2019-11-21] MEDS: VITAMIN D3 125 mcg (5,000 UNITS) PO SCH (08:26)
[2019-11-21] MEDS: THIAMINE HCL INJ IM SCH ×2 (08:26→20:28)
[2019-11-21] MEDS: LOVENOX INJ 40 MG SYR SC SCH (08:26)
[2019-11-21] MEDS: ZINC SULFATE PO SCH ×2 (08:26→20:27)
[2019-11-21] MEDS ORDERED: NS 250 ML IV 250 ML IV ONE (08:43)
[2019-11-21] MEDS: K-DUR TAB 20 MEQ PO PRN (08:52)
[2019-11-21] MEDS: TUSSIONEX PENNKINETIC SUSP PO SCH ×2 (09:03→21:00)
[2019-11-21] MEDS: ZITHROMAX INJ 500 MG VIAL 500 MG in NS 250 ML IV 250 ML IV SCH (09:38)
--- NOTE | 2019-11-21 10:59 | PCM.PROG ---
Progress Note - Progress Note for Day of Date of Exam: 11/21/19 - Subjective Subjective: IS BEING TREATED FOR BRONCHOPNEUMONIA, AND DEHYDRATION. TODAY, HE IS ALERT AND ORIENTED, LYING IN BED ON MORNING ROUNDS. HE CONTINUES WITH FEVER, COUGH, AND SHORTNESS OF BREATH. ON EXAMINATION, HEART IS REGULAR IN RATE AND RHYTHM. BILATERAL LUNGS ARE NOTED WITH SCATTERED WHEEZING AND RHONCHI THROUGHOUT. ABDOMEN IS ROUND, SOFT, AND NON-TENDER WITH NORMAL BOWEL SOUNDS NOTED IN ALL QUADRANTS. HIS VITALS THIS MORNING ARE: 98.4-73-15-97%-162/79. LABS WERE OBTAINED. ABNORMAL LAB VALUES INCLUDE THE FOLLOWING: RBC 4.57, HGB 12.8, HCT 38.2, GLUCOSE 126, CALCIUM 8.3, CRP 105.50, ALBUMIN 2.3. COVID-19 PENDING. BLOOD CULTURES ARE PENDING. A CHEST XRAY WAS OBTAINED AND REVEALED: Mild cardiomegaly with left ventricular prominence. Lungs mildly hypoinflated but clear. HE IS CURRENTLY RECEIVING: NS AT [facility], AZITHROMYCIN 500MG IV DAILY, PLAQUENIL 200MG PO TID, TUSSIONEX 5ML Q12H, SUNSHINE SALON PERLES 200MG PO TID, HUMULIN R SLIDING SCALE, ASCORBID ACID 1500MG IV Q6H, THIAMINE 200MG IM BID, VITAMIN A 10,000 UNITS PO DAILY, AND ZINC SULFATE. WE WILL CONTINUE WITH CURRENT PLAN OF CARE TODAY. OTHERWISE, WE WILL FOLLOW UP WITH AM LABS AND CONTINUE TO MONITOR. - Past Medical Family Social History Past Med/Fam/Surg Hx: No changes since H&P Allergies: Allergies No Known Drug Allergies Allergy (Verified 11/18/19 15:48) - Review of Systems ROS: No change since H&P - Vital Signs and I&O's Vital Signs: Temperature 98.4 F Pulse Rate 67 Respiratory Rate 19 Blood Pressure [Left Arm] 130/76 Blood Pressure 140/66 O2 Sat by Pulse Oximetry 99 Intake and Output: Intake & Output 11/18/19 11/19/19 11/20/19 11/21/19 11:59 11:59 11:59 11:59 Intake Total 1115 / 1115 2638 / 2638 3071 / 3071 Output Total 100 / 100 950 / 950 1675 / 1675 Balance 1015 / 1015 1688 / 1688 1396 / 1396 - Physical Exam Oriented: Normal Eyes: Normal Ear: Normal Nose: Normal Throat: Normal Respiratory: Generalized, Wheezes, Rhonchi Cardiovascular: Normal : Normal Auscultation: Bowel Sounds: Normal Tenderness: Normal Skin: Normal Musculoskeletal: Normal Psychiatric: Normal Mood Description: Calm Affect: Normal Speech Pattern: Clear, Appropriate - Laboratory and Diagnostics Result Diagrams: 11/21/19 05:20 11/21/19 05:20 Labs: 11/18/19 16:44 Blood Blood Culture - Preliminary 11/18/19 16:39 Blood Blood Culture - Preliminary Laboratory WBC 9.2 X10^3/uL (3.6-10.0) 11/21/19 05:20 RBC 4.57 X10^6/uL (4.7-6.0) L 11/21/19 05:20 Hgb 12.8 g/dL (13.5-18.0) L 11/21/19 05:20 Hct 38.2 % (42.0-54.0) L 11/21/19 05:20 MCV 83.6 fL (80.0-100.0) 11/21/19 05:20 MCH 28.0 pg (27.0-34.0) 11/21/19 05:20 MCHC 33.5 g/dL (33.0-35.0) 11/21/19 05:20 RDW 13.5 % (11.6-16.5) 11/21/19 05:20 Plt Count 202 X10^3/uL (150.0-450.0) 11/21/19 05:20 MPV 8.7 fL (7.4-11.0) 11/21/19 05:20 Neut % (Auto) 81.4 % (42.0-75.0) H 11/21/19 05:20 Lymph % (Auto) 11.6 % (21.0-51.0) L 11/21/19 05:20 [place] % (Auto) 6.4 % (0.0-13.0) 11/21/19 05:20 Eos % (Auto) 0.3 % (0.9-2.9) L 11/21/19 05:20 Baso % (Auto) 0.3 % (0.2-1.0) 11/21/19 05:20 Neut # (Auto) 7.4 x10^3/uL (2.2-4.8) H 11/21/19 05:20 Lymph # (Auto) 1.1 X10^3/uL (1.3-2.9) L 11/21/19 05:20 [place] # (Auto) 0.6 x10^3/uL (0.3-0.8) 11/21/19 05:20 Eos # (Auto) 0.0 x10^3/uL (0.0-0.2) 11/21/19 05:20 Baso # (Auto) 0.0 X10^3/uL (0.0-0.1) 11/21/19 05:20 Absolute Nucleated RBC 0.0 /100WBC 11/21/19 05:20 PT 13.5 SECONDS (11.8-14.3) 11/18/19 16:39 INR Target Range - 11/18/19 16:39 INR 1.06 (0.8-1.3) 11/18/19 16:39 APTT 43.6 SECONDS (22.9-36.5) H 11/18/19 16:39 PTT Comment - 11/18/19 16:39 Sodium 136 mmol/L (136-145) 11/21/19 05:20 Corrected Sodium 137 mmol/L (136-145) 11/21/19 05:20 Potassium 3.5 mmol/L (3.5-5.1) 11/21/19 05:20 Chloride 101 mmol/L (98-107) 11/21/19 05:20 Carbon Dioxide 29.2 mmol/L (21-32) 11/21/19 05:20 BUN 15 mg/dL (7-18) 11/21/19 05:20 Creatinine 1.15 mg/dL (0.70-1.30) 11/21/19 05:20 Est GFR (MDRD) Af Amer > 60 (>60) 11/21/19 05:20 Est GFR (MDRD) Non-Af > 60 (>60) 11/21/19 05:20 Glucose 126 mg/dL (65-99) H 11/21/19 05:20 Lactic Acid 1.2 mmol/L (0.4-2.0) 11/18/19 16:39 Calcium 8.3 mg/dL (8.5-10.1) L 11/21/19 05:20 Corrected Calcium 9.7 mg/dL (8.5-10.1) 11/21/19 05:20 Magnesium 1.8 mg/dL (1.7-2.9) 11/18/19 16:39 Total Bilirubin 0.80 mg/dL (0.2-1.0) 11/21/19 05:20 AST 30 Units/L (15-37) 11/21/19 05:20 ALT 16 Units/L (12-78) 11/21/19 05:20 Alkaline Phosphatase 67 Units/L (46-116) 11/21/19 05:20 C-Reactive Protein 105.50 mg/L (0-3.0) H 11/21/19 05:20 Total Protein 6.6 g/dL (6.4-8.2) 11/21/19 05:20 Albumin 2.3 g/dL (3.4-5.0) L 11/21/19 05:20 Globulin 4.3 g/dL (2.5-4.5) 11/21/19 05:20 Albumin/Globulin Ratio 0.5 Ratio (1.1-2.1) L 11/21/19 05:20 Specimen Type Random urine 11/18/19 18:46 Urine Color Pale yellow (YELLOW) 11/18/19 18:46 Urine Appearance Clear (CLEAR) 11/18/19 18:46 Urine pH 8.0 (5.0 - 8.0) 11/18/19 18:46 Ur Specific [place] 1.015 (1.000-1.030) 11/18/19 18:46 Urine Protein Negative (NEGATIVE) 11/18/19 18:46 Urine Glucose (UA) Negative (NEGATIVE) 11/18/19 18:46 Urine Ketones Negative (NEGATIVE) 11/18/19 18:46 Urine Occult Blood Negative (NEGATIVE) 11/18/19 18:46 Urine Nitrite Negative (NEGATIVE) 11/18/19 18:46 Urine Bilirubin Negative (NEGATIVE) 11/18/19 18:46 Urine Urobilinogen Normal (NORMAL) 11/18/19 18:46 Ur Leukocyte Esterase Negative (NEGATIVE) 11/18/19 18:46 Influenza Type A Ag Negative-presumptive (NEGATIVE) 11/18/19 16:32 Influenza Type B Ag Negative-presumptive (NEGATIVE) 11/18/19 16:32 S. pyogenes (TEM-PCR) Not detected (NOT DETECT) 11/18/19 16:32 - Plan (1) Bronchopneumonia Status: Acute Plan: AZITHROMYCIN 500MG IV DAILY, NS AT [facility], PLAQUENIL 200MG PO TID, TUSSIONEX 5ML Q12H, TESSALON PERLES 200MG PO TID, HUMULIN R SLIDING SCALE, ASCORBID ACID 1500MG IV Q6H, THIAMINE 200MG IM BID, VITAMIN A 10,000 UNITS PO DAILY, AND ZINC SULFATE, SUPPLEMENTAL OXYGEN, MONITOR LABS AND CHEST XRAY, CONTINUE TO MONITOR (2) Dehydration Status: Acute (3) Chronic kidney disease (CKD) Status: Chronic Qualifiers: Chronic kidney disease stage: stage 3 (moderate) Qualified Code(s): N18.3 - Chronic kidney disease, stage 3 (moderate) (4) Hyperglycemia Status: Acute (5) Hypertension Status: Acute Qualifiers: Hypertension type: essential hypertension Qualified Code(s): I10 - Essential (primary) hypertension
[2019-11-21] MEDS ORDERED: NEURONTIN CAP 100 MG PO SCH (11:00)
[2019-11-21] MEDS ORDERED: GLUCOPHAGE ONE ×2 (11:07→20:10)
[2019-11-21] MEDS: NORVASC TAB 5 MG PO SCH (11:08)
[2019-11-21] MEDS: MOBIC TAB 15 MG PO SCH (11:08)
[2019-11-21] MEDS: GLUCOPHAGE PO SCH ×2 (11:20→20:25)
[2019-11-21] MEDS: GLUCOTROL PO SCH ×2 (11:20→20:26)
[2019-11-21] MEDS: NEURONTIN CAP 100 MG PO SCH ×2 (13:51→20:26)
[2019-11-21] MEDS: SNACK - Diabetic Appropriate PO SCH (20:19)
[2019-11-22] MEDS: NORCO 10/325 TAB PO PRN ×2 (02:20→20:36)
[2019-11-22] MEDS: NS 100 ML IV 100 ML with ASCORBIC ACID INJ MULTI-DOSE VIAL 1,500 MG IV SCH ×10 (03:51→20:35)
[2019-11-22] MEDS: PLAQUENIL PO SCH ×3 (05:18→21:17)
[2019-11-22] MEDS: TESSALON PERLES PO SCH ×3 (05:18→21:18)
--- NOTE | 2019-11-22 06:04 | RAD ---
HISTORYShortness of breathSTUDYCHEST, 1 [id number] remains enlarged. Left ventricle is prominent. No definite congestive heart failure or acute infiltrates are identified. Mild hypo inflation is present. No pleural effusions are identified. Bony thorax is unremarkable.IMPRESSIONMild cardiomegaly with left ventricular prominenceLungs mildly hypoinflated but clearElectronically signed by: GARTH SEVILLA (November 22, 2019 06:02:31)
[2019-11-22 06:15] LABS: BASOPHILS % (AUTO) 0.3 % (0.2-1.0); EOSINOPHILS # (AUTO) 0.1 x10^3/uL (0.0-0.2); EOSINOPHILS % (AUTO) 1.2 % (0.9-2.9); HEMATOCRIT 39.8 % (42.0-54.0); HEMOGLOBIN 13.5 g/dL (13.5-18.0); LYMPHOCYTES # (AUTO) 0.8 X10^3/uL (1.3-2.9); MEAN CORPUSCULAR HEMOGLOBIN 28.2 pg (27.0-34.0); MEAN CORPUSCULAR HGB CONC 33.9 g/dL (33.0-35.0); MEAN CORPUSCULAR VOLUME 83.1 fL (80.0-100.0); MEAN PLATELET VOLUME 8.7 fL (7.4-11.0); MONOCYTES # (AUTO) 0.7 x10^3/uL (0.3-0.8); MONOCYTES % (AUTO) 7.3 % (0.0-13.0); NEUTROPHILS # (AUTO) 8.1 x10^3/uL (2.2-4.8); NEUTROPHILS % (AUTO) 83.2 % (42.0-75.0); PLATELET COUNT 246 X10^3/uL (150.0-450.0); RED BLOOD COUNT 4.79 X10^6/uL (4.7-6.0); RED CELL DISTRIBUTION WIDTH 13.3 % (11.6-16.5); WHITE BLOOD COUNT 9.8 X10^3/uL (3.6-10.0)
[2019-11-22 06:35] LABS: ALANINE AMINOTRANSFERASE 20 Units/L (12-78); ALBUMIN 2.6 g/dL (3.4-5.0); ALKALINE PHOSPHATASE 78 Units/L (46-116); ASPARTATE AMINO TRANSFERASE 38 Units/L (15-37); BLOOD UREA NITROGEN 11 mg/dL (7-18); CALCIUM 8.5 mg/dL (8.5-10.1); CARBON DIOXIDE 30.7 mmol/L (21-32); CHLORIDE 103 mmol/L (98-107); COR CA(FOR HYPOALB) 9.6 mg/dL (8.5-10.1); CREATININE 0.93 mg/dL (0.70-1.30); SODIUM 139 mmol/L (136-145); TOTAL PROTEIN 7.4 g/dL (6.4-8.2); eGFR NON BLACK RACES > 60 (>60)
[2019-11-22] MEDS ORDERED: GLUCOPHAGE ONE (07:51)
[2019-11-22] MEDS: LOVENOX INJ 40 MG SYR SC SCH (08:01)
[2019-11-22] MEDS: NORVASC TAB 5 MG PO SCH (08:01)
[2019-11-22] MEDS: VITAMIN A PO SCH (08:02)
[2019-11-22] MEDS: MOBIC TAB 15 MG PO SCH (08:04)
[2019-11-22] MEDS: ZINC SULFATE PO SCH ×2 (08:04→20:35)
[2019-11-22] MEDS: VITAMIN D3 125 mcg (5,000 UNITS) PO SCH (08:04)
[2019-11-22] MEDS: THIAMINE HCL INJ IM SCH (08:05)
[2019-11-22] MEDS: NEURONTIN CAP 100 MG PO SCH ×3 (08:05→20:33)
[2019-11-22] MEDS: GLUCOTROL PO SCH ×2 (08:06→20:33)
[2019-11-22] MEDS: GLUCOPHAGE PO SCH ×2 (08:07→20:33)
[2019-11-22] MEDS: ZITHROMAX INJ 500 MG VIAL 500 MG in NS 250 ML IV 250 ML IV SCH (08:27)
[2019-11-22] MEDS: TUSSIONEX PENNKINETIC SUSP PO SCH ×2 (09:10→21:17)
[2019-11-22] MEDS: K-DUR TAB 20 MEQ PO PRN (10:56)
[2019-11-22] MEDS: SNACK - Diabetic Appropriate PO SCH (20:32)
[2019-11-22] MEDS: NS 1000 ML 1,000 ML IV SCH (20:35)
[2019-11-23] MEDS: NS 100 ML IV 100 ML with ASCORBIC ACID INJ MULTI-DOSE VIAL 1,500 MG IV SCH ×4 (02:21→08:16)
[2019-11-23] MEDS: TESSALON PERLES PO SCH (05:06)
[2019-11-23] MEDS: PLAQUENIL PO SCH (05:06)
[2019-11-23 05:46] LABS: BASOPHILS % (AUTO) 0.4 % (0.2-1.0); EOSINOPHILS # (AUTO) 0.1 x10^3/uL (0.0-0.2); EOSINOPHILS % (AUTO) 1.8 % (0.9-2.9); HEMATOCRIT 38.1 % (42.0-54.0); HEMOGLOBIN 13.1 g/dL (13.5-18.0); LYMPHOCYTES % (AUTO) 12.7 % (21.0-51.0); MEAN CORPUSCULAR HEMOGLOBIN 28.7 pg (27.0-34.0); MEAN CORPUSCULAR HGB CONC 34.4 g/dL (33.0-35.0); MEAN CORPUSCULAR VOLUME 83.5 fL (80.0-100.0); MEAN PLATELET VOLUME 8.4 fL (7.4-11.0); MONOCYTES % (AUTO) 13.4 % (0.0-13.0); NEUTROPHILS # (AUTO) 5.6 x10^3/uL (2.2-4.8); NEUTROPHILS % (AUTO) 71.7 % (42.0-75.0); PLATELET COUNT 284 X10^3/uL (150.0-450.0); RED BLOOD COUNT 4.57 X10^6/uL (4.7-6.0); RED CELL DISTRIBUTION WIDTH 13.4 % (11.6-16.5); WHITE BLOOD COUNT 7.8 X10^3/uL (3.6-10.0)
[2019-11-23 06:03] LABS: ALANINE AMINOTRANSFERASE 24 Units/L (12-78); ALBUMIN 2.5 g/dL (3.4-5.0); ALKALINE PHOSPHATASE 81 Units/L (46-116); ASPARTATE AMINO TRANSFERASE 37 Units/L (15-37); BLOOD UREA NITROGEN 6 mg/dL (7-18); CALCIUM 8.7 mg/dL (8.5-10.1); CARBON DIOXIDE 33.1 mmol/L (21-32); CHLORIDE 104 mmol/L (98-107); COR CA(FOR HYPOALB) 9.9 mg/dL (8.5-10.1); CREATININE 0.92 mg/dL (0.70-1.30); SODIUM 140 mmol/L (136-145); TOTAL PROTEIN 7.2 g/dL (6.4-8.2); eGFR NON BLACK RACES > 60 (>60)
[2019-11-23] MEDS: VITAMIN A PO SCH (08:12)
[2019-11-23] MEDS: MOBIC TAB 15 MG PO SCH (08:13)
[2019-11-23] MEDS: NORVASC TAB 5 MG PO SCH (08:13)
[2019-11-23] MEDS: VITAMIN D3 125 mcg (5,000 UNITS) PO SCH (08:13)
[2019-11-23] MEDS: NEURONTIN CAP 100 MG PO SCH (08:14)
[2019-11-23] MEDS: LOVENOX INJ 40 MG SYR SC SCH (08:14)
[2019-11-23] MEDS: ZINC SULFATE PO SCH (08:14)
[2019-11-23] MEDS: GLUCOPHAGE PO SCH (08:15)
[2019-11-23] MEDS: GLUCOTROL PO SCH (08:15)
--- NOTE | 2019-11-23 08:34 | PCM.PROG ---
Progress Note - Progress Note for Day of Date of Exam: 11/22/19 - Subjective Subjective: IS BEING TREATED FOR BRONCHOPNEUMONIA, AND DEHYDRATION. TODAY, HE IS ALERT AND ORIENTED, LYING IN BED ON MORNING ROUNDS. HE CONTINUES WITH FEVER, COUGH, AND SHORTNESS OF BREATH. HE REPORTS SLIGHT IMPROVEMENT IN SYMPTOMS. ON EXAMINATION, HEART IS REGULAR IN RATE AND RHYTHM. BILATERAL LUNGS ARE NOTED WITH SCATTERED WHEEZING AND RHONCHI THROUGHOUT. ABDOMEN IS ROUND, SOFT, AND NON-TENDER WITH NORMAL BOWEL SOUNDS NOTED IN ALL QUADRANTS. HIS VITALS THIS MORNING ARE: 98.1-76-18-98%-178/84. LABS WERE OBTAINED. ABNORMAL LAB VALUES INCLUDE THE FOLLOWING: HCT 39.8, POTASSIUM 3.4, AST 38, CRP 76.00, ALBUMIN 2.6, GLOBULIN 4.8. COVID-19 PENDING. BLOOD CULTURES ARE PENDING. A CHEST XRAY WAS OBTAINED AND REVEALED: Mild cardiomegaly with left ventricular prominence. Lungs mildly hypoinflated but clear. HE IS CURRENTLY RECEIVING: NS AT [facility], AZITHROMYCIN 500MG IV DAILY, PLAQUENIL 200MG PO TID, TUSSIONEX 5ML Q12H, TESSALON PERLES 200MG PO TID, HUMULIN R SLIDING SCALE, ASCORBID ACID 1500MG IV Q6H, THIAMINE 200MG IM BID, VITAMIN A 10,000 UNITS PO DAILY, AND ZINC SULFATE. WE WILL CONTINUE WITH CURRENT PLAN OF CARE TODAY. OTHERWISE, WE WILL FOLLOW UP WITH AM LABS AND CONTINUE TO MONITOR. - Past Medical Family Social History Past Med/Fam/Surg Hx: No changes since H&P Allergies: Allergies No Known Drug Allergies Allergy (Verified 11/18/19 15:48) - Review of Systems ROS: No change since H&P - Vital Signs and I&O's Vital Signs: Temperature 97.9 F Pulse Rate 79 Respiratory Rate 20 Blood Pressure [Left Arm] 130/76 Blood Pressure 173/97 O2 Sat by Pulse Oximetry 95 Intake and Output: Intake & Output 11/20/19 11/21/19 11/22/19 11/23/19 11:59 11:59 11:59 11:59 Intake Total 2638 / 2638 3071 / 3071 1997 / 1997 2147 / 2147 Output Total 950 / 950 1675 / 1675 350 / 350 1325 / 1325 Balance 1688 / 1688 1396 / 1396 1648 / 1648 822 / 822 - Physical Exam Oriented: Normal Eyes: Normal Ear: Normal Nose: Normal Throat: Normal Respiratory: Generalized, Wheezes, Rhonchi Cardiovascular: Normal : Normal Auscultation: Bowel Sounds: Normal Palpation: Normal Tenderness: Normal Skin: Normal Musculoskeletal: Normal Psychiatric: Normal Mood Description: Calm Affect: Normal Speech Pattern: Clear, Appropriate - Laboratory and Diagnostics Result Diagrams: 11/23/19 05:28 11/23/19 05:28 Labs: 11/18/19 16:44 Blood Blood Culture - Preliminary 11/18/19 16:39 Blood Blood Culture - Preliminary Laboratory WBC 7.8 X10^3/uL (3.6-10.0) 11/23/19 05:28 RBC 4.57 X10^6/uL (4.7-6.0) L 11/23/19 05:28 Hgb 13.1 g/dL (13.5-18.0) L 11/23/19 05:28 Hct 38.1 % (42.0-54.0) L 11/23/19 05:28 MCV 83.5 fL (80.0-100.0) 11/23/19 05:28 MCH 28.7 pg (27.0-34.0) 11/23/19 05:28 MCHC 34.4 g/dL (33.0-35.0) 11/23/19 05:28 RDW 13.4 % (11.6-16.5) 11/23/19 05:28 Plt Count 284 X10^3/uL (150.0-450.0) 11/23/19 05:28 MPV 8.4 fL (7.4-11.0) 11/23/19 05:28 Neut % (Auto) 71.7 % (42.0-75.0) 11/23/19 05:28 Lymph % (Auto) 12.7 % (21.0-51.0) L 11/23/19 05:28 [place] % (Auto) 13.4 % (0.0-13.0) H 11/23/19 05:28 Eos % (Auto) 1.8 % (0.9-2.9) 11/23/19 05:28 Baso % (Auto) 0.4 % (0.2-1.0) 11/23/19 05:28 Neut # (Auto) 5.6 x10^3/uL (2.2-4.8) H 11/23/19 05:28 Lymph # (Auto) 1.0 X10^3/uL (1.3-2.9) L 11/23/19 05:28 [place] # (Auto) 1.0 x10^3/uL (0.3-0.8) H 11/23/19 05:28 Eos # (Auto) 0.1 x10^3/uL (0.0-0.2) 11/23/19 05:28 Baso # (Auto) 0.0 X10^3/uL (0.0-0.1) 11/23/19 05:28 Absolute Nucleated RBC 0.1 /100WBC 11/23/19 05:28 PT 13.5 SECONDS (11.8-14.3) 11/18/19 16:39 INR Target Range - 11/18/19 16:39 INR 1.06 (0.8-1.3) 11/18/19 16:39 APTT 43.6 SECONDS (22.9-36.5) H 11/18/19 16:39 PTT Comment - 11/18/19 16:39 Sodium 140 mmol/L (136-145) 11/23/19 05:28 Corrected Sodium TNP 11/23/19 05:28 Potassium 3.9 mmol/L (3.5-5.1) 11/23/19 05:28 Chloride 104 mmol/L (98-107) 11/23/19 05:28 Carbon Dioxide 33.1 mmol/L (21-32) H 11/23/19 05:28 BUN 6 mg/dL (7-18) L 11/23/19 05:28 Creatinine 0.92 mg/dL (0.70-1.30) 11/23/19 05:28 Est GFR (MDRD) Af Amer > 60 (>60) 11/23/19 05:28 Est GFR (MDRD) Non-Af > 60 (>60) 11/23/19 05:28 Glucose 84 mg/dL (65-99) 11/23/19 05:28 Lactic Acid 1.2 mmol/L (0.4-2.0) 11/18/19 16:39 Calcium 8.7 mg/dL (8.5-10.1) 11/23/19 05:28 Corrected Calcium 9.9 mg/dL (8.5-10.1) 11/23/19 05:28 Magnesium 1.8 mg/dL (1.7-2.9) 11/18/19 16:39 Total Bilirubin 0.70 mg/dL (0.2-1.0) 11/23/19 05:28 AST 37 Units/L (15-37) 11/23/19 05:28 ALT 24 Units/L (12-78) 11/23/19 05:28 Alkaline Phosphatase 81 Units/L (46-116) 11/23/19 05:28 C-Reactive Protein 76.00 mg/L (0-3.0) H 11/22/19 05:17 Total Protein 7.2 g/dL (6.4-8.2) 11/23/19 05:28 Albumin 2.5 g/dL (3.4-5.0) L 11/23/19 05:28 Globulin 4.7 g/dL (2.5-4.5) H 11/23/19 05:28 Albumin/Globulin Ratio 0.5 Ratio (1.1-2.1) L 11/23/19 05:28 Specimen Type Random urine 11/18/19 18:46 Urine Color Pale yellow (YELLOW) 11/18/19 18:46 Urine Appearance Clear (CLEAR) 11/18/19 18:46 Urine pH 8.0 (5.0 - 8.0) 11/18/19 18:46 Ur Specific [place] 1.015 (1.000-1.030) 11/18/19 18:46 Urine Protein Negative (NEGATIVE) 11/18/19 18:46 Urine Glucose (UA) Negative (NEGATIVE) 11/18/19 18:46 Urine Ketones Negative (NEGATIVE) 11/18/19 18:46 Urine Occult Blood Negative (NEGATIVE) 11/18/19 18:46 Urine Nitrite Negative (NEGATIVE) 11/18/19 18:46 Urine Bilirubin Negative (NEGATIVE) 11/18/19 18:46 Urine Urobilinogen Normal (NORMAL) 11/18/19 18:46 Ur Leukocyte Esterase Negative (NEGATIVE) 11/18/19 18:46 Influenza Type A Ag Negative-presumptive (NEGATIVE) 11/18/19 16:32 Influenza Type B Ag Negative-presumptive (NEGATIVE) 11/18/19 16:32 S. pyogenes (TEM-PCR) Not detected (NOT DETECT) 11/18/19 16:32 - Plan (1) Bronchopneumonia Status: Acute Plan: AZITHROMYCIN 500MG IV DAILY, NS AT [facility], PLAQUENIL 200MG PO TID, TUSSIONEX 5ML Q12H, TESSALON PERLES 200MG PO TID, HUMULIN R SLIDING SCALE, ASCORBID ACID 1500MG IV Q6H, THIAMINE 200MG IM BID, VITAMIN A 10,000 UNITS PO DAILY, AND ZINC SULFATE, SUPPLEMENTAL OXYGEN, MONITOR LABS AND CHEST XRAY, CONTINUE TO MONITOR (2) Dehydration Status: Acute (3) Chronic kidney disease (CKD) Status: Chronic Qualifiers: Chronic kidney disease stage: stage 3 (moderate) Qualified Code(s): N18.3 - Chronic kidney disease, stage 3 (moderate) (4) Hyperglycemia Status: Acute (5) Hypertension Status: Acute Qualifiers: Hypertension type: essential hypertension Qualified Code(s): I10 - Essential (primary) hypertension
[2019-11-23 08:35] VITALS: BP 188/95
[2019-11-23] MEDS: TUSSIONEX PENNKINETIC SUSP PO SCH (09:02)
[2019-11-23] MEDS: ZITHROMAX INJ 500 MG VIAL 500 MG in NS 250 ML IV 250 ML IV SCH (09:33)
== END 2019-11-23 11:30 | disposition home or self-care (01) | DRG 177 ==
LOC: ER 15:47 → ICU 15:47
PROVIDERS: ADMIT Internal Medicine; ATTEND Internal Medicine
DX: R79.1 Abnormal coagulation profile; E11.65 Type 2 diabetes mellitus with hyperglycemia; J18.0 Bronchopneumonia, unspecified organism; R50.9 Fever, unspecified; I12.9 Hypertensive chronic kidney disease with stage 1 through stage 4 chronic kidney disease, or unspecified chronic kidney disease; N18.3 Chronic kidney disease, stage 3 (moderate); Z79.899 Other long term (current) drug therapy; E86.0 Dehydration; U07.1 COVID-19
CPT/HCPCS: 36415; 71010; 71045; 80053; 81003; 82947; 83605; 83735; 85025; 85610; 85730; 86140; 87040; 87400; 87651; 87804; 93005; 96365; 96367; 96374; 96375; 99284; A4222; G0378; J0131; J0456; J0696; J1650; J1815; J2405; J3411; J3490; J7030; J7050; J7060